=== PATIENT | female | born 1990 | race American Indian/Alaskan Native ===

== ENCOUNTER 2018-11-14 02:19 | Emergency (ER) | payer MEDICAID, OTHER ==
--- NOTE | 2018-11-14 03:42 | Emergency Department Report ---
ED ENT HPI - General Chief complaint: Dental/Oral Stated complaint: TOOTHACHE Time Seen by Provider: 11/14/18 03:29 Source: patient Mode of arrival: Ambulatory Limitations: No Limitations - History of Present Illness Initial comments: Pt is a 28 yo female who presents to the ED with c/o dental pain that began three days ago. She states she has left lower dental pain. Pt states she has a known bad tooth on that side and needs to have her wisdom teeth removed, she states she also cracked a tooth on that left lower side a year ago. She denies any fever. She states she has had some mild facial swelling. She denies any PMHx. she states that morphine causes her to itch, she denies any other allergy. - Related Data Home Medications Medication Instructions Recorded Confirmed Last Taken Norethindrone AC-Eth Estradiol 1 each PO QDAY 03/12/15 03/14/15 03/10/15 [Loestrin] Previous Rx's Medication Instructions Recorded Last Taken Type oxyCODONE /ACETAMINOPHEN [Percocet 1 tab PO Q6HR PRN #30 tablet 03/14/15 Unknown Rx 5/325] Acetaminophen/Codeine [Tylenol 1 tab PO Q6H PRN #10 tab 11/14/18 Unknown Rx /Codeine # 3 tab] Ibuprofen [Motrin 800 MG tab] 800 mg PO Q8HR PRN #20 tablet 11/14/18 Unknown Rx Penicillin Vk [Veetids TAB] 500 mg PO QID 7 Days #56 tablet 11/14/18 Unknown Rx Allergies Allergy/AdvReac Type Severity Reaction Status Date / Time No Known Allergies Allergy Verified 03/12/15 09:58 ED Dental HPI - General Chief complaint: Dental/Oral Stated complaint: TOOTHACHE Time Seen by Provider: 11/14/18 03:29 Source: patient Mode of arrival: Ambulatory Limitations: No Limitations - Related Data Home Medications Medication Instructions Recorded Confirmed Last Taken Norethindrone AC-Eth Estradiol 1 each PO QDAY 03/12/15 03/14/15 03/10/15 [Loestrin] Previous Rx's Medication Instructions Recorded Last Taken Type oxyCODONE /ACETAMINOPHEN [Percocet 1 tab PO Q6HR PRN #30 tablet 03/14/15 Unknown Rx 5/325] Acetaminophen/Codeine [Tylenol 1 tab PO Q6H PRN #10 tab 11/14/18 Unknown Rx /Codeine # 3 tab] Ibuprofen [Motrin 800 MG tab] 800 mg PO Q8HR PRN #20 tablet 11/14/18 Unknown Rx Penicillin Vk [Veetids TAB] 500 mg PO QID 7 Days #56 tablet 11/14/18 Unknown Rx Allergies Allergy/AdvReac Type Severity Reaction Status Date / Time No Known Allergies Allergy Verified 03/12/15 09:58 ED Review of Systems ROS: Stated complaint: TOOTHACHE Other details as noted in HPI Comment: All other systems reviewed and negative ED Past Medical Hx - Past Medical History Previous Medical History?: Yes Hx Hypertension: No Hx Heart Attack/AMI: No Hx Congestive Heart Failure: No Hx Diabetes: No Hx Deep Vein Thrombosis: No Hx Renal Disease: No Hx Sickle Cell Disease: Yes (trait only) Hx Seizures: No Hx Asthma: No Hx COPD: No Hx HIV: No - Surgical History Past Surgical History?: No - Social History Smoking Status: Former Smoker Substance Use Type: Alcohol - Medications Home Medications: Home Medications Medication Instructions Recorded Confirmed Last Taken Type Norethindrone AC-Eth Estradiol 1 each PO QDAY 03/12/15 03/14/15 03/10/15 History [Loestrin] oxyCODONE /ACETAMINOPHEN [Percocet 1 tab PO Q6HR PRN #30 tablet 03/14/15 Unknown Rx 5/325] Acetaminophen/Codeine [Tylenol 1 tab PO Q6H PRN #10 tab 11/14/18 Unknown Rx /Codeine # 3 tab] Ibuprofen [Motrin 800 MG tab] 800 mg PO Q8HR PRN #20 tablet 11/14/18 Unknown Rx Penicillin Vk [Veetids TAB] 500 mg PO QID 7 Days #56 tablet 11/14/18 Unknown Rx ED Physical Exam - General Limitations: No Limitations General appearance: alert, in no apparent distress - Head Head exam: Present: atraumatic, normocephalic - Eye Eye exam: Present: normal appearance - ENT ENT exam: Present: mucous membranes moist, other (on the lower left side at tooth #18 patient has cracked tooth with just root left in place, pt has area of induration surrounding the cracked tooth on the gum, wisdom tooth #17 is present, also on the upper right side at tooth number 2, tooth is missing with small area of necrosis) - Respiratory Respiratory exam: Present: normal lung sounds bilaterally. Absent: respiratory distress, wheezes, rales, rhonchi, stridor, chest wall tenderness, accessory muscle use, decreased breath sounds, prolonged expiratory - Cardiovascular Cardiovascular Exam: Present: regular rate, normal rhythm, normal heart sounds. Absent: systolic murmur, diastolic murmur, rubs, gallop - Neurological Exam Neurological exam: Present: alert, oriented X3 - Psychiatric Psychiatric exam: Present: normal affect, normal mood - Skin Skin exam: Present: warm, dry, intact ED Course Vital Signs 11/14/18 11/14/18 02:22 04:00 Temperature 98.1 F 98.6 F Pulse Rate 99 H 90 Respiratory 18 20 Rate Blood Pressure 141/93 Blood Pressure 139/79 [Left] O2 Sat by Pulse 98 99 Oximetry ED Medical Decision Making - Medical Decision Making Pt is a 28 yo female who presents to the ED with c/o dental pain that began three days ago. She states she has left lower dental pain. Pt states she has a known bad tooth on that side and needs to have her wisdom teeth removed, she states she also cracked a tooth on that left lower side a year ago. She denies any fever. She states she has had some mild facial swelling. She denies any PMHx. she states that morphine causes her to itch, she denies any other allergy. vitals are normal. on exam: on the lower left side at tooth #18 patient has cracked tooth with just root left in place, pt has area of induration surrounding the cracked tooth on the gum, wisdom tooth #17 is present, also on the upper right side at tooth number 2, tooth is missing with small area of necrosis. examination consistent with dental abscess. no obvious facial edema present. uvula is midline, no difficulty swallowing secretions. pt given abx, pain medication and anti-inflammatory. discussed to please take all medication as prescribed. do not drive or operate heavy machinery while taking pain medication. please follow up with a dentist in the next 2-3 days. return to the emergency room for any new or worsening symptoms. Critical care attestation.: If time is entered above; I have spent that time in minutes in the direct care of this critically ill patient, excluding procedure time. ED Disposition Clinical Impression: Dental abscess, Cracked tooth Disposition: TO HOME OR SELFCARE Is pt being admited?: No Does the pt Need Aspirin: No Condition: Stable Instructions: Dental Abscess (ED) Additional Instructions: please take all medication as prescribed. do not drive or operate heavy machinery while taking pain medication. please follow up with a dentist in the next 2-3 days. return to the emergency room for any new or worsening symptoms. Prescriptions: Ibuprofen [Motrin 800 MG tab] 800 mg PO Q8HR PRN #20 tablet PRN Reason: Pain Acetaminophen/Codeine [Tylenol /Codeine # 3 tab] 1 tab PO Q6H PRN #10 tab PRN Reason: Pain , Severe (7-10) Penicillin Vk [Veetids TAB] 500 mg PO QID 7 Days #56 tablet Referrals: JACOBO THOMAS MD [Primary Care Provider] - 2-3 Days [facility] [Outside] - 2-3 Days Forms: Work/School Release Form(ED) Time of Disposition: 03:42 Print Language: [place]
[2018-11-14 04:12] VITALS: BP 139/79
== END 2018-11-14 04:09 | disposition home or self-care (01) ==
LOC: ED 02:19
DX: K04.7 Periapical abscess without sinus (principal); Z87.891 Personal history of nicotine dependence; Z79.899 Other long term (current) drug therapy
CPT/HCPCS: 99282